=== PATIENT | female | born 1990 | race Two or more races ===

== ENCOUNTER 2021-12-25 03:30 | Emergency (ER) | payer MEDICAID ==
[~2021-12-25] VITALS: Ht 167.6 cm; Wt 105.4 kg
[2021-12-25 03:34] VITALS: BP 120/74
[2021-12-25] MEDS ORDERED: ESCI10TA MT (03:45)
== END 2021-12-25 04:18 | disposition home or self-care (01) ==
LOC: ER 03:30
DX: F15.10 Other stimulant abuse, uncomplicated (principal); F12.10 Cannabis abuse, uncomplicated; R07.89 Other chest pain; F32.A Depression, unspecified; Z98.890 Other specified postprocedural states
CPT/HCPCS: 93005; 99283